=== PATIENT | female | born 1960 | race Caucasian/White ===

== ENCOUNTER → 2017-04-18 | Outpatient (CLI) | payer OTHER ==
[~2017-04-18] MED LIST: ACET-3017 PO; ENOX60DI8 SQ; IBUP-1687 PO; LEVO25TA61 PO; NAPR220C12 PO; NO CURRENT MEDS; RIVA20TA PO; SUMA50TA34 PO; WARF5TAB23 PO
--- NOTE | 2017-04-21 11:46 | RADIOLOGY IMAGING REPORT ---
FACILITY: [facility] PATIENT NAME: ALLEN VALVERDE : [id number] MR: [id number] V: [id number] EXAM DATE: [id number] ORDERING PHYSICIAN: PINEDA NEFF TECHNOLOGIST: Unique Beasley PROCEDURE:BILATERAL DIGITAL SCREENING MAMMOGRAM WITH CAD ASSISTED INTERPRETATION & 3D TOMOSYNTHESIS COMPARISON:Prior mammograms 03/08/16, 11/30/14, 09/09/14, 03/10/13, 03/03/13 INDICATIONS:SCREENING FINDINGS: Dense heterogeneous fibroglandular tissue is seen throughout the breasts. The parenchymal pattern has remained stable allowing for difference in mammographic technique & patient positioning. There is no evidence of malignant appearing mass, malignant appearing calcifications or other secondary sign of malignancy in either breast. Surgical clips in the upper outer quadrant of both breasts again seen. DIAGNOSTIC CATEGORY 2--BENIGN FINDING. RECOMMENDATIONS: ROUTINE MAMMOGRAM AND CLINICAL EVALUATION. IMPRESSION: BIRADS 2: Benign finding No significant abnormality is seen Dictated by: Delilah Choi M.D. on 04/18/2017 at 11:52 Transcribed by: ULISSES on 04/18/2017 at 13:18 Approved by: Delilah Choi M.D. on 04/21/2017 at 11:45 [facility]
== END ==
LOC: MAMO 04:06
PROVIDERS: ATTEND Obstetrics & Gynecology
DX: Z12.31 Encounter for screening mammogram for malignant neoplasm of breast (principal); Z98.890 Other specified postprocedural states
CPT/HCPCS: 77063; 77067

== ENCOUNTER → 2017-12-03 | Outpatient (CLI) | payer OTHER ==
--- NOTE | 2017-12-03 16:33 | RADIOLOGY IMAGING REPORT ---
[place] [facility] [place] NAME: ALLEN VALVERDE : [id number] MR: [id number] V: [id number] EXAM DATE: [id number] ORDERING PHYSICIAN: WILDER HAINES TECHNOLOGIST: Alpa Del Cid RDMS(ABD,OBGYN,BR),RVT PROCEDURE:US LEFT BREAST COMPLETE COMPARISON:None. INDICATIONS:defuse inflammation of the left breast rule out abscess. FINDINGS: Diffuse edema is noted throughout the Left breast although a discreet abscess is not demonstrated. This likely represents an inflammatory phlegmon. A message was left for iWlder Haines at 1554 on 12/03/17. DIAGNOSTIC CATEGORY 2--BENIGN FINDING. RECOMMENDATIONS: CLINICAL EVALUATION. IMPRESSION: BIRADS 2: Benign finding. Diffuse edema seen throughout the Left breast without a discreet abscess. This likely represents an inflammatory phlegmon. Clinical follow-up recommended. If symptoms persist or worsen a follow-up Left breast Ultrasound recommended to exclude a developing abscess. Dictated by: Delilah Choi M.D. on 12/03/2017 at 15:55 Transcribed by: ULISSES on 12/03/2017 at 16:22 Approved by: Delilah Choi M.D. on 12/03/2017 at 16:32 [facility]
== END ==
LOC: US 12:57
PROVIDERS: ATTEND Physician Assistant
DX: N61.0 Mastitis without abscess (principal)

== ENCOUNTER → 2017-12-08 | Outpatient (CLI) | payer OTHER ==
[~2017-12-08] MED LIST changes: +SULF-198 PO
--- NOTE | 2017-12-09 10:10 | RADIOLOGY IMAGING REPORT ---
FACILITY: [facility] PATIENT NAME: ALLEN VALVERDE : [id number] MR: [id number] V: [id number] EXAM DATE: [id number] ORDERING PHYSICIAN: PINEDA PACHECO TECHNOLOGIST: Shanti East RT(R)(CT) PROCEDURE:US LEFT BREAST COMPLETE COMPARISON:Prior Left breast Ultrasound 12/03/17. INDICATIONS:Check for L. breast abscess FINDINGS: There appears to be slightly less edema in the Left breast. There is a slightly irregular fluid collection in the approximate 1-2 o'clock position of the Left breast 4cm from the nipple. The anterior border of the fluid is approximately 6mm deep to the skin and extends approximately 3cm inward. In the 4 o'clock position there is a 5 x 2.7 x 5mm ovoid hypoechoic nodular area possibly an intramammary lymph node although follow-up recommended. In the 11 o'clock position of the Left breast 1cm from the nipple is a 9.5 x 8.3 x 8.4mm irregular ovoid hypoechoic nodule with some acoustic shadowing. Although this could represent an intramammary lymph node the irregular margins suggest this could represent a small mass lesion. Following treatment for patient's breast infection a short interval follow-up Left breast Ultrasound is recommended in addition to a Left mammogram. Depending on additional imaging findings in the patient's personal history of prior breast cancer a bilateral MR may also be of value. DIAGNOSTIC CATEGORY 3--PROBABLY BENIGN FINDING. RECOMMENDATIONS: one MONTH FOLLOW-UP DIAGNOSTIC MAMMOGRAM: LEFT BREAST. one MONTH FOLLOW-UP ULTRASOUND: LEFT BREAST. IMPRESSION: BIRADS 3: Probably benign finding. A short interval follow-up Left breast Ultrasound and Left mammogram is recommended following patient's treatment for her breast infection. Depending on the additional imaging bilateral breast MR may also be of value given the patient's clinical history of prior breast cancer. Dictated by: Delilah Choi M.D. on 12/08/2017 at 17:37 Transcribed by: ULISSES on 12/09/2017 at 8:33 Approved by: Delilah Choi M.D. on 12/09/2017 at 10:08 [facility]
== END ==
LOC: US 12:56
PROVIDERS: ATTEND Surgery
DX: N63.22 Unspecified lump in the left breast, upper inner quadrant (principal); N63.21 Unspecified lump in the left breast, upper outer quadrant

== ENCOUNTER → 2018-01-05 | Outpatient (CLI) | payer OTHER ==
[~2018-01-05] MED LIST changes: +AMOX-559 PO
--- NOTE | 2018-01-05 15:48 | RADIOLOGY IMAGING REPORT ---
[place] [facility] [place] NAME: ALLEN VALVERDE : [id number] MR: [id number] V: [id number] EXAM DATE: [id number] ORDERING PHYSICIAN: PINEDA PACHECO TECHNOLOGIST: Ching Estrella RDMS PROCEDURE:US LEFT BREAST COMPARISON:Ultrasound Left breast 12/08/2017, 12/03/2017, Diagnostic Left breast mammogram 01/05/2018. INDICATIONS:Indeterminate mass Left breast. FINDINGS: At the 11 o'clock position Left breast, measure to 1cm from the nipple there is a complex mass, with slightly obscured borders that measures 8 x 9 x 10mm. This is not significantly changed from the prior Ultrasound 12/08/2017. This demonstrates partial posterior acoustic shadowing. Under real time imaging, the nodule is almost directly next to the areola at the 11 o'clock position. At the 4 o'clock position, Left breast, 4cm from the nipple there is a 4 x 4 x 4mm mass with decreased hypoechoic echotexture and slightly irregular borders. This is unchanged from the prior study. DIAGNOSTIC CATEGORY 4--SUSPICIOUS FOR MALIGNANCY. RECOMMENDATIONS: ULTRASOUND-GUIDED CORE BIOPSY: LEFT BREAST. IMPRESSION: BIRADS 4: Suspicious for malignancy. 1. There are 2 nodules in the Left breast, 1 almost directly next to the areola at the11 o'clock position that measures 10mm in greatest size. Although this is unchanged from December 08 2017, I would recommend Ultrasound guided biopsy for further evaluation. When I spoke to the patient, about her overall breast infection/erythema has significantly improved however the nodule remains. 2. At the Left breast 4 o'clock position there is a 4mm slightly irregular marginated lesion. Recommend Ultrasound guided biopsy for further evaluation. 3. This was discussed with the patient by Dr. Peña. Dictated by: Conrad Peña M.D. on 01/05/2018 at 14:43 Transcribed by: DENISA on 01/05/2018 at 15:34 Approved by: Conrad Peña M.D. on 01/05/2018 at 15:47 [facility]
--- NOTE | 2018-01-05 15:48 | RADIOLOGY IMAGING REPORT ---
FACILITY: [facility] - [place] PATIENT NAME: ALLEN VALVERDE : [id number] MR: [id number] V: [id number] EXAM DATE: [id number] ORDERING PHYSICIAN: PINEDA PACHECO TECHNOLOGIST: Unique Beasley PROCEDURE:LEFT DIGITAL DIAGNOSTIC MAMMOGRAM WITH CAD ASSISTED INTERPRETATION & 3D TOMOSYNTHESIS COMPARISON:Prior mammogram 04/18/2017. INDICATIONS:1 MO F/U BREAST ABCESS FINDINGS: The breast tissue is heterogeneously dense. Surgical clips are seen in the upper outer quadrant of the Left breast, unchanged from the prior study. There is no suspicious mass, calcification, or architectural distortion. DIAGNOSTIC CATEGORY 0--INCOMPLETE: NEED ADDITIONAL IMAGING EVALUATION. RECOMMENDATIONS: ULTRASOUND IF CLINICALLY INDICATED: LEFT BREAST. Please schedule a breast ultrasound if appropriate based on clinical data. IMPRESSION: BIRADS 0: Incomplete. No mammographic evidence for malignancy. The patient is scheduled for an Ultrasound Today to follow-up indeterminate lesions in the Left breast. Dictated by: Conrad Peña M.D. on 01/05/2018 at 12:17 Transcribed by: ULISSES on 01/05/2018 at 13:56 Approved by: Conrad Peña M.D. on 01/05/2018 at 15:47 [facility]
== END ==
LOC: MAMO 02:50
PROVIDERS: ATTEND Surgery
DX: N63.22 Unspecified lump in the left breast, upper inner quadrant (principal); N63.21 Unspecified lump in the left breast, upper outer quadrant
CPT/HCPCS: 77061; 77065

== ENCOUNTER → 2018-01-11 | Outpatient (CLI) | payer OTHER | LOC: LAB 16:19 | PROVIDERS: ATTEND Surgery | DX: N63.20 Unspecified lump in the left breast, unspecified quadrant (principal) ==

== ENCOUNTER → 2018-01-12 | Outpatient (CLI) | payer OTHER ==
[2018-01-11 16:43] LABS: INR 1.02
--- NOTE | 2018-01-13 16:41 | RADIOLOGY IMAGING REPORT ---
FACILITY: [facility] - [place] PATIENT NAME: ALLEN VALVERDE : [id number] MR: [id number] V: [id number] EXAM DATE: ORDERING PHYSICIAN: PINEDA PACHECO TECHNOLOGIST: Anson Kim RDMS, [facility] PROCEDURE: ULTRASOUND GUIDED LEFT BREAST BIOPSY COMPARISON: Prior Left breast Ultrasound 01/05/18 & prior Left mammogram of 01/05/18. INDICATIONS: 2 Left breast lumps FINDINGS: Informed consent was obtained. The patient's Left breast was prepped and draped in the usual sterile fashion. Attention was first directed towards the complex solid nodule in the 11 o'clock position of the Left breast. Local anesthesia was accomplished with 1% lidocaine. Under sonographic guidance three 12 Gauge core biopsies were obtained through this hypoechoic nodule. The samples were placed in formalin shown to the patient and sent to the laboratory for evaluation. A biopsy clip was placed in the biopsy site. Attention was then directed towards the 4 o'clock nodule. Local anesthesia was accomplished with 1% lidocaine. Two 12 Gauge core biopsies were obtained through the small hypoechoic nodule in the 4 o'clock position of the Left breast. Samples were placed in formalin shown to the patient then sent to the laboratory for evaluation. A biopsy clip was placed in the biopsy site. The procedures were accomplished without apparent complication. IMPRESSION: 1. Successful sonographically guided biopsy of two Left breast masses one in the 11 o'clock position and one in the 4 o'clock position. Pathology results are pending. Dictated by: Delilah Choi M.D. on 01/12/2018 at 16:22 Transcribed by: ULISSES on 01/13/2018 at 10:47 Approved by: Delilah Choi M.D. on 01/13/2018 at 16:40 [facility]
--- NOTE | 2018-01-13 16:42 | RADIOLOGY IMAGING REPORT ---
[place] [facility] [place] ALLEN VALVERDE : [id number] MR: [id number] V: [id number] EXAM DATE: ORDERING PHYSICIAN: PINEDA PACHECO TECHNOLOGIST: Unique Beasley PROCEDURE:LEFT DIGITAL DIAGNOSTIC MAMMOGRAM COMPARISON:Prior mammogram 01/05/18. INDICATIONS:POST ULTRASOUND GUIDED LEFT BREAST BIOPSY MAMMOGRAM FOR CLIP PLACEMENT LOCALIZATION. FINDINGS: Heterogeneously dense tissue is seen again seen throughout the Left breast. Surgical clips are present in the upper outer quadrant of the Left breast from previous lumpectomy. The new biopsy clips are now seen one in the approximate 11 o'clock position anterior 1/3 of the Left breast and one in the middle 1/3 of Left breast lateral portion on the Left CC view appears just above midline on the Left MLO view. IMPRESSION: Two post Ultrasound guided Left breast biopsy clips are noted as above. Dictated by: Delilah Choi M.D. on 01/12/2018 at 16:24 Transcribed by: ULISSES on 01/13/2018 at 10:54 Approved by: Delilah Choi M.D. on 01/13/2018 at 16:40 [facility]
== END ==
LOC: MAMO 01-11 15:43 → EDSTATUS 15:42
PROVIDERS: ATTEND Surgery
DX: R92.8 Other abnormal and inconclusive findings on diagnostic imaging of breast (principal); N63.21 Unspecified lump in the left breast, upper outer quadrant
CPT/HCPCS: 19083; 36415; 77061; 77065; 85027; 85610; 85730; 88305; 88344